=== PATIENT | male | born 1960 | race American Indian/Alaskan Native ===

== ENCOUNTER 2022-01-14 16:54 | Emergency (ER) | payer SELFPAY ==
[2022-01-14 18:51] LABS: BUN/Creatinine Ratio 13; Blood Urea Nitrogen 13 mg/dL (9-20); Calcium 9.7 mg/dL (8.4-10.2); Hemolysis Index 6
[2022-01-14 18:54] LABS: Basophils % (Auto) 0.2 % (0.0-1.8); Eosinophils % (Auto) 0.6 % (0.0-4.3); Hematocrit 38.9 % (35.5-45.6); Hemoglobin 12.7 gm/dl (11.8-15.2); Lymphocytes # (Auto) 1.8 K/mm3 (1.2-5.4); Lymphocytes % (Auto) 24.6 % (13.4-35.0); Mean Corpuscular HGB Conc 33 % (32-34); Mean Corpuscular Volume 82 fl (84-94); Monocytes # (Auto) 0.7 K/mm3 (0.0-0.8); Monocytes % (Auto) 10.2 % (0.0-7.3); Platelet Count 189 K/mm3 (140-440); Red Blood Count 4.75 M/mm3 (3.65-5.03); Red Cell Distribution Width 13.9 % (13.2-15.2)
--- NOTE | 2022-01-14 21:40 | XRay Report ---
CHEST 2 VIEWS INDICATION / CLINICAL INFORMATION: Chest Pain. COMPARISON: None available. FINDINGS: SUPPORT DEVICES: None. HEART / MEDIASTINUM: No significant abnormality. LUNGS / PLEURA: No significant pulmonary or pleural abnormality. No pneumothorax. ADDITIONAL FINDINGS: No significant additional findings. IMPRESSION: 1. No acute findings. Signer Name: Rio Cameron MD Signed: 01/14/2022 9:35 PM Workstation Name: [id number]
[2022-01-15] MEDS ORDERED: diazePAM 10 MG/2 ML SYRINGE IV ONE (06:03)
--- NOTE | 2022-01-15 06:44 | Emergency Department Report ---
ED Chest Pain HPI - General Chief Complaint: Chest Pain Stated Complaint: CHEST PAIN Time Seen by Provider: 01/15/22 06:02 Source: patient Mode of arrival: Ambulatory Limitations: No Limitations - History of Present Illness Initial Comments: 61-year-old male with a past medical history of PTSD, depression, anxiety, hypertension presents to the hospital complaining of chest pain and anxiety. Patient complained of right-sided aching chest pain prior to arrival which has since resolved. He apparently has had repeated panic attacks and anxiety with shortness of breath, pacing, and insomnia for the last 2 days. 1 month ago patient was at [facility] for 24-hour observation. For chest pain. He had a negative stress test at that time. Since admission patient has had progressively worsening panic attacks that typically occur at night. Patient denies smoking history, endorses marijuana use and denies other drug abuse Severity scale (0 -10): 5 - Related Data Previous Rx's Medication Instructions Recorded Last Taken Type oxyCODONE /ACETAMINOPHEN [Percocet 1 tab PO Q6HR PRN #60 tablet 06/23/13 Unknown Rx 5/325 mg] Sertraline [Zoloft] 25 mg PO QDAY 30 Days #30 tab 01/15/22 Unknown Rx hydrOXYzine PAMOATE [Vistaril] 25 mg PO Q6HR PRN 30 Days #60 01/15/22 Unknown Rx capsule Allergies Allergy/AdvReac Type Severity Reaction Status Date / Time No Known Allergies Allergy Verified 01/14/22 17:15 Heart Score - HEART Score History: Slightly suspicious EKG: Non-specific Age: 45-65 Risk factors: 1-2 risk factors Troponin: < normal limit HEART Score: 3 - EKG Read Time Time EKG Completed: 06:12 EKG Read Time: 06:15 ED Review of Systems ROS: Stated complaint: CHEST PAIN Other details as noted in HPI Comment: All other systems reviewed and negative ED Past Medical Hx - Social History Smoking Status: Current Every Day Smoker - Medications Home Medications: Home Medications Medication Instructions Recorded Confirmed Last Taken Type oxyCODONE /ACETAMINOPHEN [Percocet 1 tab PO Q6HR PRN #60 tablet 06/23/13 Unknown Rx 5/325 mg] Sertraline [Zoloft] 25 mg PO QDAY 30 Days #30 tab 01/15/22 Unknown Rx hydrOXYzine PAMOATE [Vistaril] 25 mg PO Q6HR PRN 30 Days #60 01/15/22 Unknown Rx capsule ED Physical Exam - General Limitations: No Limitations - Other Other exam information: General: Anxious Head: Atraumatic Eyes: normal appearance ENT: Moist mucous membranes Neck: Normal appearance, no midline tenderness Chest: Clear to auscultation bilaterally, tachypnea CV: Regular rate and rhythm Abdomen: Soft, normal bowel sounds, nontender, nondistended, no rebound or guarding Back: Normal inspection Extremity: Normal inspection, full range of motion Neuro: Alert O x 3, no facial asymmetry, speech clear, no gross motor sensory deficit Psych: Anxious, pacing Skin: No rash ED Course Vital Signs 01/14/22 01/15/22 01/15/22 17:12 01:35 08:52 Temperature 98.9 F 98.7 F 98.3 F Pulse Rate 85 77 66 Respiratory 18 18 19 Rate Blood Pressure 144/89 Blood Pressure 122/85 153/84 [Right] O2 Sat by Pulse 100 98 99 Oximetry 01/15/22 08:53 Temperature Pulse Rate Respiratory Rate Blood Pressure Blood Pressure [Right] O2 Sat by Pulse 99 Oximetry ED Medical Decision Making - Lab Data Result diagrams: 01/14/22 17:45 01/14/22 17:45 Lab Results 01/14/22 01/14/22 01/15/22 Range/Units 17:45 17:45 07:46 WBC 7.2 (4.5-11.0) K/mm3 RBC 4.75 (3.65-5.03) M/mm3 Hgb 12.7 (11.8-15.2) gm/dl Hct 38.9 (35.5-45.6) % MCV 82 L (84-94) fl MCH 27 L (28-32) pg MCHC 33 (32-34) % RDW 13.9 (13.2-15.2) % Plt Count 189 (140-440) K/mm3 Lymph % (Auto) 24.6 (13.4-35.0) % [place] % (Auto) 10.2 H (0.0-7.3) % Eos % (Auto) 0.6 (0.0-4.3) % Baso % (Auto) 0.2 (0.0-1.8) % Lymph # (Auto) 1.8 (1.2-5.4) K/mm3 [place] # (Auto) 0.7 (0.0-0.8) K/mm3 Eos # (Auto) 0.0 (0.0-0.4) K/mm3 Baso # (Auto) 0.0 (0.0-0.1) K/mm3 Seg Neutrophils % 64.4 (40.0-70.0) % Seg Neutrophils # 4.7 (1.8-7.7) K/mm3 Sodium 142 (137-145) mmol/L Potassium 3.9 (3.6-5.0) mmol/L Chloride 103.6 (98-107) mmol/L Carbon Dioxide 26 (22-30) mmol/L Anion Gap 16 mmol/L BUN 13 (9-20) mg/dL Creatinine 1.0 (0.8-1.3) mg/dL Estimated GFR > 60 ml/min BUN/Creatinine Ratio 13 % Glucose 94 (75-100) mg/dL Calcium 9.7 (8.4-10.2) mg/dL Troponin T < 0.010 < 0.010 (0.00-0.029) ng/mL Urine Color (Yellow) Urine Turbidity (Clear) Specific [place] (Man) (1.003-1.030) Ur Protein (Man) (Negative) mg/dL Ur Ketones (Man) (Negative) Ur Nitrite (Man) (Negative) Ur Reducing Substances Urine Bilirubin (Man) (Negative) Urine Ictotest Leukocyte Esterase (Man) (Negative) Urine WBC (Auto) (0.0-6.0) /HPF Urine RBC (Auto) (0.0-6.0) /HPF U Epithel Cells (Auto) (0-13.0) /HPF Urine Bacteria (Auto) (Negative) /HPF Urine RBC (Manual) (Negative) Urine Opiates Screen Urine Methadone Screen Ur Barbiturates Screen Ur Phencyclidine Scrn Ur Amphetamines Screen U Benzodiazepines Scrn Urine Cocaine Screen U Marijuana (THC) Screen Drugs of Abuse Note Plasma/Serum Alcohol (0-0.07) % 01/15/22 01/15/22 01/15/22 Range/Units 07:46 09:26 09:27 WBC (4.5-11.0) K/mm3 RBC (3.65-5.03) M/mm3 Hgb (11.8-15.2) gm/dl Hct (35.5-45.6) % MCV (84-94) fl MCH (28-32) pg MCHC (32-34) % RDW (13.2-15.2) % Plt Count (140-440) K/mm3 Lymph % (Auto) (13.4-35.0) % [place] % (Auto) (0.0-7.3) % Eos % (Auto) (0.0-4.3) % Baso % (Auto) (0.0-1.8) % Lymph # (Auto) (1.2-5.4) K/mm3 [place] # (Auto) (0.0-0.8) K/mm3 Eos # (Auto) (0.0-0.4) K/mm3 Baso # (Auto) (0.0-0.1) K/mm3 Seg Neutrophils % (40.0-70.0) % Seg Neutrophils # (1.8-7.7) K/mm3 Sodium (137-145) mmol/L Potassium (3.6-5.0) mmol/L Chloride (98-107) mmol/L Carbon Dioxide (22-30) mmol/L Anion Gap mmol/L BUN (9-20) mg/dL Creatinine (0.8-1.3) mg/dL Estimated GFR ml/min BUN/Creatinine Ratio % Glucose (75-100) mg/dL Calcium (8.4-10.2) mg/dL Troponin T (0.00-0.029) ng/mL Urine Color Straw (Yellow) Urine Turbidity Slightly cloudy (Clear) Specific [place] (Man) 1.010 (1.003-1.030) Ur Protein (Man) Negative (Negative) mg/dL Ur Ketones (Man) Negative (Negative) Ur Nitrite (Man) Negative (Negative) Ur Reducing Substances Not Reportable Urine Bilirubin (Man) Negative (Negative) Urine Ictotest Not Reportable Leukocyte Esterase (Man) Negative (Negative) Urine WBC (Auto) < 1.0 (0.0-6.0) /HPF Urine RBC (Auto) 2.0 (0.0-6.0) /HPF U Epithel Cells (Auto) 1.0 (0-13.0) /HPF Urine Bacteria (Auto) 1+ (Negative) /HPF Urine RBC (Manual) Negative (Negative) Urine Opiates Screen Negative Urine Methadone Screen Negative Ur Barbiturates Screen Negative Ur Phencyclidine Scrn Negative Ur Amphetamines Screen Negative U Benzodiazepines Scrn Negative Urine Cocaine Screen Negative U Marijuana (THC) Screen Positive Drugs of Abuse Note Disclamer Plasma/Serum Alcohol < 0.01 (0-0.07) % - EKG Data -: EKG Interpreted by Me EKG shows normal: sinus rhythm, ST-T waves (LVH) Rate: normal (89) - EKG Data When compared to previous EKG there are: previous EKG unavailable - Radiology Data Radiology results: report reviewed (Chest x-ray no acute findings) - Medical Decision Making [id number] male presents to the hospital with atypical chest pain. Patient with right-sided and resolved by time of my evaluation. Troponin negative x2. Recent cardiac work-up at [facility] for similar symptoms. Patient exhibited active anxiety/panic attack during my evaluation and and has had insomnia for the past 2 days. Patient treated with IV Valium with improvement. Patient seen by nurse practitioner with medications prescribed and outpatient resources provided Critical Care Time: No Critical care attestation.: If time is entered above; I have spent that time in minutes in the direct care of this critically ill patient, excluding procedure time. ED Disposition Clinical Impression: Anxiety, Atypical chest pain Disposition: HOME / SELF CARE / HOMELESS Is pt being admited?: No Does the pt Need Aspirin: No Condition: Stable Instructions: Nonspecific Chest Pain, Adult, Managing Anxiety, Adult Additional Instructions: Take the medication as prescribed. Follow-up with your doctor or doctor/clinic provided. Return if symptoms worsen as indicated by your discharge instructions. Professional and Agency Contacts To help Resolve Crises (30/11) ID Crisis Line: Suicide Prevention Line: Crisis Text Line: Text START to 584942 Emergency: 911 Outpatient COMMUNITY Behavioral Health Resources: VERONICA: [facility] [address] [place], [place] [address] HARSHAW: [facility] [address] [place] [address] Wednesday thru Wednesday - 8am - 5pm Call to schedule an assessment for mental health and substance abuse programs [facility] Address: [address] [place], [place] [address] Wednesday thru Wednesday- 7am-2pm [facility] Address: [address] [place], [place] [address] Wednesday thru Wednesday: 8:30AM-5PM OUTPATIENT MENTAL HEALTH RESOURCES [facility], [facility] Ten Quintanilla MD: [address] [place] [address] [place] [address] [facility]: [facility] [address] [place], [place] [id number] [place] [address] [phone] [facility]: [facility]: [address] [facility] [address] [facility] [place] [address] [facility] [id number] [facility]: Arturo Ernst MD: [address] [facility] [address] [facility] [id number] [facility]: [address] [place], [place] [id number] [phone] ID CRISIS AND ACCESS LINE: Prescriptions: hydrOXYzine PAMOATE [Vistaril] 25 mg PO Q6HR PRN 30 Days #60 capsule PRN Reason: Anxiety Sertraline [Zoloft] 25 mg PO QDAY 30 Days #30 tab Referrals: PRIMARY CAREMD [Primary Care Provider] - 3-5 Days [facility] [Provider Group] - 3-5 Days Time of Disposition: 13:03
[2022-01-15 08:53] VITALS: BP 153/84
[2022-01-15] MEDS: SODIUM CHLORIDE 0.9% 1000 ML 1,000 ML IV ONE ×2 (09:09→09:10)
[2022-01-15 10:06] LABS: Amphetamine Screen,Urine Negative; Benzodiazepines Screen,Urine Negative; Cocaine Screen,Urine Negative; Methadone Screen,Urine Negative; Opiate Screen,Urine Negative
[2022-01-15 10:07] LABS: Bacteria,Urine 1+ /HPF (Negative)
[2022-01-15 10:10] LABS: Color,Urine Straw (Yellow); WBC,Urine < 1.0 /HPF (0.0-6.0)
[2022-01-15 10:58] LABS: Cannabinoid Screen,Urine Positive
--- NOTE | 2022-01-15 10:59 | Electrocardiograph Report ---
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
--- NOTE | 2022-01-15 12:01 | Consultation ---
History of Present Illness - Reason for Consult Consult date: 01/15/22 Reason for consult: mental health evaluation - History of Present Psychiatric Illness ED NOTE: 61-year-old male with a past medical history of PTSD, depression, anxiety, hypertension presents to the hospital complaining of chest pain and anxiety. Patient complained of right-sided aching chest pain prior to arrival which has since resolved. He apparently has had repeated panic attacks and anxiety with shortness of breath, pacing, and insomnia for the last 2 days. 1 month ago patient was at [facility] for 24-hour observation. For chest pain. He had a negative stress test at that time. Since admission patient has had progressively worsening panic attacks that typically occur at night. Patient denies smoking history, endorses marijuana use and denies other drug abuse Patient is a 61 year-old male with history of PTSD, generalized anxiety, and depression who presents to the ER for chest pain. The patient was seen today. He is calm, alert and oriented x4. The patient reports non-compliance with situational anxiety medication prescribed by [facility]. Patient sees a therapist once every 3 months. Patient denies feeling excessively anxious and denies depression at this time. Patient denies suicidal ideation, homicidal ideation, au ditory/visual hallucinations. PAST PSYCHIATRIC HISTORY: Diagnoses: PTSD, THOMAS, MDD Suicide attempts or Self-harm behavior: Yes in the 90's Prior psychiatric hospitalizations: Yes Substance Abuse history: [place], cocaine, crack Previous psychiatric medications tried: Yes Outpatient treatment: Yes PAST MEDICAL HISTORY: Obstructive sleep apnea, Hypertension Family Psychiatric History: None reported SOCIAL HISTORY Marital Status: Living Arrangements: Lives with Employment Status: Disabled Access to guns/weapons: Denies Education: High school History of Abuse: No Legal History: Denies REVIEW OF SYSTEMS Constitutional: Negative for weight loss ENT: Negative for stridor Respiratory: Negative for cough or hemoptysis All other systems reviewed and are negative MENTAL STATUS General Appearance and Behavior: age appropriate, good eye contact, cooperative, Cooperation: Cooperative Psychomotor Behavior: within normal limits Mood: Calm Affect and affective range: Congruent with stated mood Thought Process: goal directed Thought Content: reality oriented Speech: Normal volume and normal rate and rhythm Suicidal Ideation: Denies SI Homicidal Ideation: Denies HI Hallucinations: Denies Impulse Control: intact Insight and Judgment: Normal Memory: Normal Attention: Attentive Orientation: alert and oriented x4 Assessment Hx of PTSD, generalized anxiety disorder, major depressive disorder Treatment Plan Continue home meds Start zoloft 25 mg PO qd, vistaril 25 mg PO q6h PRN for anxiety The patient is to get first dose of meds prior to leaving. Benefits and possible SE were explained to patient. She verbalizes understanding. Risks, benefits and alternatives of medications discussed with the patient, questions answered and consent obtained from patient. PSYCHOTHERAPY: Supportive psychotherapy provided MEDICAL: Per primary team DELIRIUM PRECAUTIONS: Please re-orient patient frequently, keep lights on during the day, and minimize benzodiazepines and opiates as these medications could worsen patient's confusion. HAND FOLDER: Defer to primary DISPOSITION: Do not recommend acute inpatient psychiatric hospitalization at this time. [facility] will provide psychiatric outpatient resources. Recommend sleep study. FOLLOW-UP: Will sign off. Thank you for the consult. Please contact with any questions and/or concerns Case discussed with Dr. Mares who agrees with current disposition Medications and Allergies Medications and Allergies Allergies Allergy/AdvReac Type Severity Reaction Status Date / Time No Known Allergies Allergy Verified 01/14/22 17:15 Home Medications Medication Instructions Recorded Confirmed Last Taken Type oxyCODONE /ACETAMINOPHEN [Percocet 1 tab PO Q6HR PRN #60 tablet 06/23/13 Unknown Rx 5/325 mg] Sertraline [Zoloft] 25 mg PO QDAY 30 Days #30 tab 01/15/22 Unknown Rx hydrOXYzine PAMOATE [Vistaril] 25 mg PO Q6HR PRN 30 Days #60 01/15/22 Unknown Rx capsule Mental Status Exam - Vital signs Last Vital Signs Temp 98.3 F 01/15/22 08:52 Pulse 66 01/15/22 08:52 Resp 19 01/15/22 08:52 BP 153/84 01/15/22 08:52 Pulse Ox 99 01/15/22 08:53 Results Result Diagrams: 01/14/22 17:45 01/14/22 17:45 Abnormal lab results 01/14/22 Range/Units 17:45 MCV 82 L (84-94) fl MCH 27 L (28-32) pg [place] % (Auto) 10.2 H (0.0-7.3) % All other labs normal.
== END 2022-01-15 13:20 | disposition home or self-care (01) ==
LOC: ED 16:54
DX: F41.9 Anxiety disorder, unspecified (principal); R07.89 Other chest pain; F17.200 Nicotine dependence, unspecified, uncomplicated; Z79.899 Other long term (current) drug therapy
CPT/HCPCS: 36415; 71046; 80048; 80307; 81001; 84484; 85025; 93005; 96361; 96374; 99284; J3360; J7030; 80320; G0480